=== PATIENT | female | born 1960 | race Caucasian/White ===

== ENCOUNTER 2016-08-10 20:38 | Emergency (ER) | payer SELFPAY ==
[~2016-08-10] VITALS: Ht 162.6 cm; Wt 82.0 kg
[~2016-08-10 20:38] MED LIST: PENI500T PO; Z.0.NO CURRENT MEDS
[2016-08-10 20:39] VITALS: BP 166/88; PULSE 77; RESP 14; TEMP 98.3; O2SAT 96
== END 2016-08-10 22:15 | disposition left against medical advice (07) ==
LOC: NED 20:38
DX: L02.419 Cutaneous abscess of limb, unspecified (principal); Z53.21 Procedure and treatment not carried out due to patient leaving prior to being seen by health care provider
CPT/HCPCS: 99281